=== PATIENT | male | born 1980 | race Caucasian/White ===

== ENCOUNTER 2019-02-28 15:31 | Emergency (ER) | payer SELFPAY ==
--- NOTE | 2019-02-28 15:31 | EDPHY ---
H & P Time Seen by Provider: 02/28/19 15:32 Constitutional: Initial Vital Signs Temperature (C) 36.7 C 02/28/19 15:35 Heart Rate 94 02/28/19 15:35 Respiratory Rate 16 02/28/19 15:35 Blood Pressure 135/75 H 02/28/19 15:35 O2 Sat (%) 94 02/28/19 15:35 O2 Delivery Mode Room Air Allergies/Adverse Reactions: No Known Allergies Allergy (Unverified 02/28/19 15:35) Home Medications: Medication Instructions Recorded NK [No Known Home Meds] 02/28/19 Medical Decision Making ED Course/Re-evaluation: CHIEF COMPLAINT: Found down HISTORY OF PRESENT ILLNESS: The patient is a 38 y/o male arriving via EMS with [facility] after he was found down today. Per EMS the patient had his pants around his ankles and was sleeping on the side walk. EMS noted that his BGL was 64, so they gave him oral glucose. The patient does smell of alcohol. He currently states that he was just sleeping. He denies drinking alcohol or taking illicit substances. I am unable to obtain further information due to his mental status. REVIEW OF SYSTEMS: Unable to obtain secondary to altered mental status. PHYSICAL EXAM: HR, BP, O2 Sat, RR. Temp noted General Appearance: Smells of alcohol, alert, well hydrated, and non-toxic appearing. Head: Atraumatic without scalp tenderness or obvious injury Eyes: Pupils equal, round, reactive to light and accommodation, EOMI, no trauma , no injection. Ears: Clear bilaterally, no perforation, normal landmarks Nose: Atraumatic, no rhinorrhea, clear. Throat: There is no erythema or exudates, no lesions, normal tonsils, mucus membranes moist. Neck: Supple, 2+ carotid upstroke, nontender, no lymphadenopathy. Respiratory: No retractions, no distress, no wheezes, and no accessory muscle use. Lungs are clear to auscultation bilaterally. Cardiovascular: Regular rate and rhythm, no murmurs, rubs, or gallops. Bilateral carotid, radial, dorsalis pedis, and posterior tibial pulses intact. Good capillary refill all extremities. Gastrointestinal: Abdomen is soft, nontender, non-distended, no masses, no rebound, no guarding, no peritoneal signs. Musculoskeletal: Normal active ROM of all extremities, atraumatic. Neurological: Alert, appropriate, and interactive. The patient has normal DTRs and non-focal cranial nerves, motor, sensory, and cerebellar exam. Skin: No rashes, good turgor, no nodules on palpation. Past medical history: Alcoholism Past surgical history: Denies Family history: Denies Social history: Single, unemployed, transient DIAGNOSTICS/PROCEDURES/CRITICAL CARE TIME: Not indicated. DIFFERENTIAL DIAGNOSIS: The differential diagnosis for the patient's altered mental status included but was not limited to hypoglycemia, infectious process, electrolyte abnormality, head injury, neurologic process, anemia, cardiac process, and intoxicants. MEDICAL DECISION MAKING: The patient is a 38 y/o male arriving via EMS with [facility] after he was found down today. Per EMS the patient had his pants around his ankles and was sleeping on the side walk. EMS noted that his BGL was 64, so they gave him oral glucose. The patient does smell of alcohol. I am unable to obtain further information due to his mental status. He does appear intoxicated. His altered mental status could be due to an alcohol withdrawal seizure. Patient does not meet M1 Hold criteria. Imaging and medication is not necessary. Labs ordered. 1532: I met EMS upon arrival. 1627: Patient's alcohol level is 17, he most likely has an alcohol withdrawal seizure. He is safe to be discharged to the [facility]. Return precautions provided; patient is comfortable wit this plan. - Data Points Laboratory Results: 02/28/19 02/28/19 15:56 15:50 POC Hgb 14.3 gm/dL gm/dL (13.7-17.5) POC Hct 42 % % (40-51) POC Sodium 140 mEq/L mEq/L (135-145) POC Potassium 3.9 mEq/L mEq/L (3.3-5.0) POC Chloride 105 mEq/L mEq/L (97-110) POC Total CO2 22 mEq/L mEq/L (22-31) POC BUN 14 mg/dL mg/dL (7-23) POC Creatinine 1.2 mg/dL mg/dL (0.7-1.3) POC Glucose 103 mg/dL H mg/dL (70-100) Ethyl Alcohol 17 mg/dL H mg/dL (0-10) Point of Care Test Results: Chemistry 02/28/19 15:56 POC Sodium 140 mEq/L mEq/L (135-145) POC Potassium 3.9 mEq/L mEq/L (3.3-5.0) POC Chloride 105 mEq/L mEq/L (97-110) POC Total CO2 22 mEq/L mEq/L (22-31) POC BUN 14 mg/dL mg/dL (7-23) POC Creatinine 1.2 mg/dL mg/dL (0.7-1.3) POC Glucose 103 mg/dL H mg/dL (70-100) ISTAT H&H 02/28/19 15:56 POC Hgb 14.3 gm/dL gm/dL (13.7-17.5) POC Hct 42 % % (40-51) Departure - Departure Disposition: Home, Routine, Self-Care Clinical Impression: Seizure Alcohol intoxication Qualifiers: Complication of substance-induced condition: uncomplicated Qualified Code(s): F10.920 - Alcohol use, unspecified with intoxication, uncomplicated Condition: Good Instructions: Alcohol Intoxication (ED), Abuse of Alcohol (ED), Alcohol Withdrawal (ED) Additional Instructions: 1. Please refrain from abusing alcohol. 2. Return to the emergency department immediately for fever, vomiting, confusion , headache, abdominal pain or other worsening of condition. 3. Followup with your primary care physician within 72 hours for reevaluation. Referrals: [facility],. [Clinic] - As per Instructions [facility] 24 Hours [Outside] - As per Instructions Report Scribed for: Marco Antonio Walter Report Scribed by: Sarah Cantu Date of Report: 02/28/19 Time of Report: 15:32
[2019-02-28] MEDS ORDERED: LORazepam 1 MG TAB PO ONE (16:26)
[2019-02-28] MEDS ORDERED: CHLORDIAZEPOXIDE 25MG PREPK#6 BTL TAKEHOME ONE (16:27)
[2019-02-28 17:09] VITALS: BP 127/85
== END 2019-02-28 17:10 | disposition home or self-care (01) ==
DX: R41.82 Altered mental status, unspecified (principal); F10.239 Alcohol dependence with withdrawal, unspecified; Y90.0 Blood alcohol level of less than 20 mg/100 ml
CPT/HCPCS: 82435-PO; 82565-PO; 82947-PO; 84132-PO; 84295-PO; 84520-PO; 85014-ER; G0480